=== PATIENT | female | born 1980 | race Caucasian/White ===

== ENCOUNTER 2018-11-21 20:56 | Emergency (ER) | payer BC, SELFPAY ==
[2018-11-21 21:00] VITALS: BP 133/83; PULSE 85; RESP 18; TEMP 36.6; O2SAT 98
--- NOTE | 2018-11-21 21:07 | W.ED.GENAD ---
Discharge Plan Disposition Patient Disposition: HOME Condition: Stable Discharge Details Chief Complaint: Orthopedic Clinical Impression: Contusion of knee, left, Contusion of ankle, left Primary Care Provider: Shai Pabon ED Provider: Ezekiel Zayas Home Meds and New Rx's Prescriptions: No Action acetaminophen [Mapap Extra Strength] 500 MG tablet 1,000 mg PO Q6H PRN PRNRF: 0 norgestimate-ethinyl estradiol [Ortho Tri-Cyclen (28)] 0.18/0.215/0.25 mg-35 mcg (28) Tablet 1 tab PO DAILY RF: 0 loratadine 10 mg Tablet 10 mg PO DAILY RF: 0 Discharge Instructions Instructions: Contusion in Adults (ED) Additional Instructions: you can take 1000mg tylenol every 6 hours for pain if you develop severe worsening pain return to the emergency department for reevaluation if you have pain in a week see your primary care provider Medical Decision Making 38 yo female states she slipped on ice about 2.5 hours ago and landed on the left side. Denies hitting head or loc and has no headache, neck pain, chest pain or abodminal pain. Has pain in the left knee and ankle and is able to bear weight. she has full rom of the joints, has a small abrasion about 2cm over anterior knee with intact distal sensation and 2+ dp/pt pulses and no edema of the leg. She has pain of anterior ankle with palpation and knee, suspect contusion but will xray to eval for fx. Meets all criteria per nexus and [place] head ct urles to not image her head or c spine. States this was purely mechcanical, no preceding symptoms so do not feel presyncope or syncope w/u indicated xrays show no pathology. Do not suspect meniscus or ligamentous tear, advised if still in pain in a week to see pcp and return if worsening Differential Diagnosis contusion, sprain, fx Imaging Data Radiologic Study: Attestation: I personally reviewed and interpreted this imaging study as follows: Imaging: X-Ray Radiologist's impression: negative ankle xray Radiologic Study #2: Attestation: I personally reviewed and interpreted this imaging study as follows: Imaging: X-Ray Radiologist's impression: negative knee xray HPI General Mode of arrival: ambulatory. Date/Time Provider Initiated Documentation: 11/21/18 20:57. Limitations to Documentation: no limitations. Information obtained by: patient. History of Present Illness 38 year old F presents to the emergency department with the chief complaint of left knee pain, described as moderate, and is localized to the left and lower extremity. Patient reports no radiation. Patient started experiencing this hour(s) (2) and it has been constant. Rest improves symptom(s), Movement worsens symptoms . Patient did receive the following treatments prior to arrival, none Related Data Home Medications Medication Instructions Recorded Confirmed acetaminophen [Tylenol Extra 1,000 mg PO Q6H PRN PRN 12/14/16 11/21/18 Strength] loratadine 10 mg PO DAILY 11/21/18 11/21/18 norgestimate-ethinyl estradiol 1 tab PO DAILY 11/21/18 11/21/18 [Ortho Tri-Cyclen (28)] Allergies Allergy/AdvReac Type Severity Reaction Status Date / Time Iodine and Iodide Containing Allergy Intermediate Hives Unverified 12/14/16 08:18 Produc procaine [From Novocain] Allergy Unverified 12/14/16 08:18 sulfamethoxazole Allergy Hives Unverified 11/21/18 21:04 [From Bactrim] trimethoprim [From Bactrim] Allergy Hives Unverified 11/21/18 21:04 NSAIDS (Non-Steroidal AdvReac Nausea Unverified 11/21/18 21:04 Anti-Inflamma prednisone AdvReac nausea/dizz Unverified 12/14/16 08:18 y General Stated Complaint: Orthopedic CHUCKY: 4 Review of Systems Review of Systems All systems reviewed & are unremarkable except as noted in HPI and below Constitutional Denies chills and Denies fever(s) Cardiovascular Denies chest pain and Denies dyspnea Respiratory Denies dyspnea Gastrointestinal Denies abdominal pain, Denies nausea and Denies vomiting Integumentary/Breasts Denies rash PFSH Social History Smoking and Tabacco status: Never Exam Const General: no acute distress Orientation: alert HENMT Head: normal to inspection Ears: external ears normal General nose exam: external nose normal Mouth: moist mucous membranes Eyes General: appearance normal, both eyes and all related structures Neck Neck: normal visual inspection Resp Effort & Inspection: normal respiratory effort and able to speak in complete sentences Cardio Rate: regular rate Skin General skin exam: no rashes or lesions noted Neuro General: alert and oriented x3 Extrem General: full ROM and normal capillary refill Psych Mental Status: mental status grossly normal Course Vital Signs Temperature 36.6 C 11/21/18 21:00 Pulse 85 11/21/18 21:00 Respiratory Rate 18 11/21/18 21:00 Blood Pressure 133/83 11/21/18 21:00 Pulse Oximetry 98 11/21/18 21:00 Temperature 36.6 C 11/21/18 21:00 Temperature Source Skin 11/21/18 21:00 Pulse 85 11/21/18 21:00 Respiratory Rate 18 11/21/18 21:00 Blood Pressure 133/83 11/21/18 21:00 Blood Pressure Position Sitting 11/21/18 21:00 Pulse Oximetry 98 11/21/18 21:00 Oxygen Delivery Method Room Air 11/21/18 21:00 Oxygen Flow Rate 0 11/21/18 21:00 Pain Level 5 11/21/18 21:00
--- NOTE | 2018-11-21 21:30 | DI.RAD_ITS ---
SYMPTOM/DIAGNOSIS: PAIN, S/P FALL LEFT ANKLE: Three views. No acute fracture or dislocation is seen. The soft tissues are unremarkable. IMPRESSION: No acute abnormality.
--- NOTE | 2018-11-21 21:30 | DI.RAD_ITS ---
SYMPTOM/DIAGNOSIS: PAIN, S/P FALL LEFT KNEE: Three views. No acute fracture or dislocation is identified. IMPRESSION: No acute abnormality.
--- NOTE | 2018-11-21 21:59 | DI.VRAD_ITS ---
EXAM: XR Left Knee, 3 Views EXAM DATE/TIME: 11/21/2018 9:07 PM CLINICAL HISTORY: 38 years old, female; Injury or trauma; Fall; Initial encounter; Sprain or strain; Patella or knee; Left; Injury date: 11/21/2018 TECHNIQUE: XR Left knee 3 views. COMPARISON: No relevant prior studies available. FINDINGS: Bones/joints: Osseous anatomic alignment is well preserved. No acutely displaced fracture or dislocation. Joint spaces are well preserved. Soft tissues: Normal. IMPRESSION: Negative for acute skeletal pathology. Dictated and Authenticated by: John Barbosa MD. Ordering:SHANEL Falcon MD
--- NOTE | 2018-11-21 21:59 | DI.VRAD_ITS ---
EXAM: XR Left Ankle Complete, 3 or more Views EXAM DATE/TIME: 11/21/2018 9:07 PM CLINICAL HISTORY: 38 years old, female; Injury or trauma; Fall; Initial encounter; Sprain or strain; Ankle; Left; Injury date: 11/21/2018; Injury details: Fell on the ice TECHNIQUE: XR Left ankle 3 or more views. COMPARISON: No relevant prior studies available. FINDINGS: Bones/joints: Osseous anatomic alignment is well preserved. No acutely displaced fracture or dislocation. Joint spaces are well preserved. Small plantar calcaneal spur incidentally noted. Soft tissues: Normal. IMPRESSION: Negative for acute skeletal pathology. Dictated and Authenticated by: John Barbosa MD. Ordering:SHANEL Falcon MD
== END 2018-11-21 22:47 | disposition home or self-care (01) ==
PROVIDERS: Emergency Provider Emergency Medicine; PCP Family Medicine
DX: S80.02XA Contusion of left knee, initial encounter (principal); S90.02XA Contusion of left ankle, initial encounter; W00.0XXA Fall on same level due to ice and snow, initial encounter
CPT/HCPCS: 73562; 99284; 73610

== ENCOUNTER 2020-08-27 22:04 | Outpatient (REF) | payer BC, SELFPAY ==
[2020-08-31 17:09] LABS: COVID-19 RT-PCR Result NEGATIVE (Negative)
== END 2020-08-27 22:24 ==
LOC: LBN 22:04
PROVIDERS: PCP Family Medicine; Visit Provider Physician Assistant Medical
DX: J02.9 Acute pharyngitis, unspecified (principal)
CPT/HCPCS: U0003

== ENCOUNTER 2025-04-13 15:40 | Emergency (ER) | payer BC, SELFPAY ==
[2025-04-13 15:51] VITALS: BP 138/81; PULSE 85; RESP 18; TEMP 36.6; O2SAT 96
[2025-04-13] MEDS: Diph,Pertuss(Acell),Tet Vac/Pf 0.5 ML SYR IM (16:18)
--- NOTE | 2025-04-13 16:34 | ED.GENADUL_ITS ---
Discharge Plan Disposition Patient Disposition: Home Condition: Good Discharge Details Clinical Impression: Superficial laceration of finger Primary Care Provider: Dasia Diaz ED Provider: Jen Avalos Home Meds and New Rx's Prescriptions: No Action acetaminophen [Mapap Extra Strength] 500 MG tablet 1,000 mg PO Q6H PRN PRN norgestimate-ethinyl estradiol [Ortho Tri-Cyclen (28)] 0.18/0.215/0.25 mg-35 mcg (28) Tablet 1 tab PO DAILY loratadine 10 mg Tablet 10 mg PO DAILY Discharge Instructions Additional Instructions: Your tetanus was updated today Keep your finger clean and dry. Wash daily antibacterial soap and water. Please do not soak in water. You may apply a thin layer of bacitracin/triple antibiotic ointment. Cover with a bandage if you were to be doing anything that could get it dirty Look out for signs of infection such as redness, swelling, pus draining, foul odor. Denies any of these, please seek care immediately as it may indicate need for antibiotics. Referrals: Shai Pabon [ [facility] STAFF PHYSICIAN, Medicine] Discharge Data Discharge Date/Time-TO BE ENTERED AT DEPARTURE: 04/13/25 16:41 HPI General Date/Time Provider Initiated Documentation: 04/13/25 15:52 . HPI Narrative: Melanie is a 45 year old female who presents to the emergency dept today for evaluation of laceration to L middle finger. Sustained injury while removing corners from a drywall bracket, resulting in immediate cut on finger. Pain is discomforting but manageable. Small laceration noted on the radial aspect of the left middle finger, no active bleeding. Full hand mobility, able to fully extend and make a fist. Constant pain without wrist involvement. Cleaned wound thoroughly, no significant past medical history that may impair healing. Uncertain if cut was caused by marie or regular part of bracket. Recently diagnosed with diabetes, prescribed metformin but has not yet started taking this. Related Data Home Medications ?Medication ?Instructions ?Recorded ?Confirmed acetaminophen 500 mg tablet (Mapap 1,000 mg PO Q6H PRN PRN 12/14/11/21/18 Extra Strength) loratadine 10 mg tablet 10 mg PO DAILY 11/21/1811/09 norgestimate-ethinyl estradiol 1 tab PO DAILY 11/21/18 11/21/18 0.18mg/0.215mg/0.25mg-0.035mg(28)tablet (Ortho Tri-Cyclen (28)) Allergies Allergy/AdvReac Type Severity Reaction Status Date / Time Iodine and Iodide Containing Allergy Intermediate Hives Unverified 12/14/16 08:18 Produc procaine (From Novocain) Allergy Unverified 12/14/16 08:18 sulfamethoxazole (From Allergy Hives Unverified 11/21/18 21:04 Bactrim) trimethoprim (From Bactrim) Allergy Hives Unverified 11/21/18 21:04 NSAIDS (Non-Steroidal AdvReac Nausea Unverified 11/21/18 21:04 Anti-Inflamma prednisone AdvReac nausea/dizz Unverified 12/14/16 08:18 y General Stated Complaint: Laceration CHUCKY: 4 Exam Narrative Exam Narrative: General Appearance: Normal. Alert and oriented, no acute distress Vital signs: Within normal limits. Extremities: Full range of motion in left third finger, able to fully extend and make a fist. No joint swelling. Brisk cap refill Skin: Superficial finger laceration proximal 0.5 cm to middle phalanx; no signs of infection such as redness, swelling, or drainage. Neurological: Sensation intact in affected finger, no numbness. Psychiatric: Normal. Course Vital Signs Vital signs: Vital Signs Temperature 36.6 C 04/13/25 15:51 Pulse 85 04/13/25 15:51 Respiratory Rate 18 04/13/25 15:51 Blood Pressure 138/81 04/13/25 15:51 Pulse Oximetry 96 04/13/25 15:51 Temperature 36.6 C 04/13/25 15:51 Pulse 85 04/13/25 15:51 Respiratory Rate 18 04/13/25 15:51 Blood Pressure 138/81 04/13/25 15:51 Pulse Oximetry 96 04/13/25 15:51 Medical Decision Making Initial Assessment: 45-year-old female with superficial finger laceration. No foreign body or fracture. ED Course: - Tetanus shot administered, last Tdap booster unknown - Wound cleaned and dressed Final Assessment: Superficial finger laceration, would not benefit from Dermabond or Steri-Strips, as it does not go through skin layer. No red flags concerning for foreign body or fracture. Tetanus shot given. Wound cleaned and dressed. Clinical Impression: - Finger laceration Disposition: - Discharge: Home. Discharge instructions with patient, including wound care and red flags indicating need for return to emergency care. No signs of infection or complications. Return if redness, swelling, pus, or drainage occurs. - Follow-Up: Primary care doctor in [place]. Patient Education: Keep wound clean and dry. Use antibacterial soap and water. Apply Neosporin and cover with Band-Aid when exposed to dirt. Avoid soaking hand in water. Use gloves for dishwashing. Return if signs of infection occur. Patient consented to the use of [facility] PFS All Active Problems (Updated 04/13/25 @ 16:38 by Jen Montesinos) Superficial laceration of finger (Acute) Social History Smoking/Tobacco Use Status: Never Smoking risk assessment performed?: Yes Alcohol Intake: current Alcohol Intake frequency: holidays/special occasions only Drug use: Never Do you feel safe in your relationship?: Yes
== END 2025-04-13 16:41 | disposition home or self-care (01) ==
PROVIDERS: Emergency Provider Nurse Practitioner Family; PCP Internal Medicine
DX: S61.212A Laceration without foreign body of right middle finger without damage to nail, initial encounter (principal); W26.8XXA Contact with other sharp object(s), not elsewhere classified, initial encounter; Y93.H3 Activity, building and construction; Y92.89 Other specified places as the place of occurrence of the external cause; E11.9 Type 2 diabetes mellitus without complications; Z79.84 Long term (current) use of oral hypoglycemic drugs; Z23 Encounter for immunization
CPT/HCPCS: 90471; 90715; 99283